=== PATIENT | male | born 1955 | race Caucasian/White ===

== ENCOUNTER 2025-09-14 13:27 | Outpatient (OUT) | payer MEDICARE, SELFPAY ==
[2025-09-15 04:07] LABS: PSA, Free 1.45 ng/mL
== END 2025-09-14 13:28 | disposition home or self-care (01) ==
LOC: LAB 13:38
PROVIDERS: PCP Family Medicine; Visit Provider Urology
DX: R97.20 Elevated prostate specific antigen [PSA] (principal)
CPT/HCPCS: 36415; 84153; 84154